=== PATIENT | male | born 1975 ===

== ENCOUNTER 2024-09-15 20:41 | Emergency (ER) | payer OTHER, SELFPAY ==
[2024-09-15 21:13] VITALS: BP 134/93; PULSE 83; RESP 18; TEMP 36.6; O2SAT 98; BMI 30.3
[2024-09-15 21:44] LABS: IDNOW Serial# 55D5AD1C; Strep A Nucleic Acid Negative (Negative)
[2024-09-15 22:13] LABS: Influenza A PCR NEGATIVE (Negative); Influenza B PCR NEGATIVE (Negative); Resp Syncy Virus RNA Qual PCR NEGATIVE (Negative); SARS COV2 PCR INHOUSE NEGATIVE (Negative)
--- NOTE | 2024-09-15 22:36 | ED_ITS ---
HPI - General Adult General Chief complaint: Dental/Oral Stated complaint: Dental Pain Time Seen by Provider: 09/15/24 22:28 Source: patient Limitations: no limitations History of Present Illness ED Provider: Ileana Grimm PA-C HPI narrative: 48-year-old male presents with left upper molar pain x2 days. Pain is radiating to the left ear and throat. Patient states he has had a fever of 101 at home. Related Data Previous Rx's ?Medication ?Instructions ?Recorded ketorolac 10 mg tablet 10 mg PO Q6H PRN pain #20 tabs 09/15/24 methocarbamol 750 mg tablet 1,500 mg (2 x 750 mg) PO Q8H PRN 09/15/24 pain, moderate #20 tabs penicillin V potassium 500 mg 500 mg PO QID #27 tabs 09/15/24 tablet Allergies Allergy/AdvReac Type Severity Reaction Status Date / Time No Known Allergies Allergy Verified 09/15/24 21:16 Review of Systems Review of Systems: Yes all other systems are reviewed and are negative Constitutional: Constitutional: Reports fever(s) ENT: Reports dental pain, Reports otalgia and Reports sore throat Cardiovascular: Cardiovascular: Denies chest pain and Denies dyspnea Respiratory: Respiratory: Denies cough and Denies dyspnea Gastrointestinal: Gastrointestinal: Denies abdominal pain, Denies nausea and Denies vomiting PMF Past Medical History Attestation statement: The following information was validated with the patient. Social History Social History Advance Directives: No Advance Directives Information Provided: No Do you have a plan to hurt others: No Plan Physical Exam ED Vital Signs: Vital Signs - 24 hr 09/15/24 21:13 09/15/24 22:37 Temperature 97.9 F 97.7 F Pulse Rate 83 79 Respiratory Rate 18 18 Blood Pressure 134/93 H 125/81 Pulse Oximetry 98 98 Oxygen Delivery Method Room Air Room Air BMI result Body Mass Index 30.3 Const Other: Alert Orientation/consciousness: patient oriented x3 HENMT Other: Overall grossly normal dentition, he does have his wisdom teeth, on the affected side he is having pain over the entire roll of upper dentition, there was no obvious erythema, swelling or purulence from any tooth, no trismus no drooling, oropharynx is pink, no exudate, uvula midline no sublingual fluctuance, Resp Effort & Inspection: normal respiratory effort Cardio Other: normal peripheral perfusion Skin Other: warm dry no rash Neuro General: patient oriented x3, gait normal, no focal motor deficits and CN's II- XI intact bilaterally Psych Other: cooperative Medications Administered Discontinued Medications Generic Name Dose Route Start Last Admin Trade Name Neo PRN Reason Stop Dose Admin Ketorolac Tromethamine 15 mg 09/15/24 23:11 09/15/24 23:24 Ketorolac Tromethamine 15 Mg/Ml Vial IM 09/15/24 23:12 15 mg ONCE ONE Administration Methocarbamol 1,500 mg 09/15/24 23:11 09/15/24 23:23 Methocarbamol 750 Mg Tablet PO 09/15/24 23:12 1,500 mg ONCE ONE Administration Penicillin V Potassium 500 mg 09/15/24 23:11 09/15/24 23:23 Penicillin V Potassium 250 Mg Tablet PO 09/15/24 23:12 500 mg ONCE ONE Administration Medical Decision Making Medical Decision Making MDM Narrative: 48-year-old male presents with left upper molar pain x2 days. Pain is radiating to the left ear and throat. Patient states he has had a fever of 101 at home. Problem: Needs a dentist History: Per patient I have considered the following differential diagnoses: Needs wisdom teeth out, dental infection, strep pharyngitis, RPA, [employer] ADMINISTRATOR Plan: Viral panel and strep screen were ordered from triage, he does not have strep throat. I think his ear and throat pain and are referred pain from his dental pain. I do not see anything obvious on exam in the way of an infection, he does have his wisdom teeth, perhaps it is applying pressure on the other teeth. He knows he needs to see a dentist. We will start on penicillin, send with a muscle relaxant and an anti-inflammatory. I have independently reviewed the following tests: Viral panel negative Strep screen negative Lab Data Labs: Lab Results 09/15/24 Range/Units 21:31 Influenza Type A (PCR) NEGATIVE (Negative) Influenza Type B (PCR) NEGATIVE (Negative) RSV RNA Qual (PCR) NEGATIVE (Negative) SARS-CoV-2 RNA (RT-PCR) NEGATIVE (Negative) S. pyogenes GrpA MIRNA Negative (Negative) Discharge Plan Discharge Clinical Impression: Toothache Patient Disposition: Home, Self-Care Instructions: Toothache (ED) Additional Instructions: We are covering you for potential early dental infection. Take the penicillin as directed. You need to follow up with a dentist. The viral panel and the strep throat screen were negative. I believe your ear pain and throat pain are referred pain from your likely dental infection. You need to be seen TE[facility] Prescriptions: New penicillin V potassium 500 mg tablet 500 mg PO QID Qty: 27 0RF methocarbamol 750 mg tablet 1,500 mg PO Q8H PRN (Reason: pain, moderate) Qty: 20 0RF ketorolac 10 mg tablet 10 mg PO Q6H PRN (Reason: pain) Qty: 20 0RF Rx Instructions: maximum total duration of 5 days from all oral, intranasal, or parenteral for mulations. Patient an intramuscular dose of Toradol here in the emergency department. Print Language: [place]
[2024-09-15 22:37] VITALS: BP 125/81; PULSE 79; RESP 18; TEMP 36.5; O2SAT 98
[2024-09-15] MEDS: Penicillin V Potassium 250 MG TABLET 500 MG PO (23:23)
[2024-09-15] MEDS: methocarbamoL 750 MG TABLET 1500 MG PO (23:23)
[2024-09-15] MEDS: Ketorolac Tromethamine 15 MG/ML VIAL IM (23:24)
[2024-09-15 23:58] VITALS: BP 131/86; PULSE 70; RESP 18; TEMP 36.4; O2SAT 99
== END 2024-09-16 | disposition home or self-care (01) ==
PROVIDERS: Emergency Provider Emergency Medicine; PCP Family Medicine
DX: K08.89 Other specified disorders of teeth and supporting structures (principal); R50.9 Fever, unspecified; Z03.818 Encounter for observation for suspected exposure to other biological agents ruled out
CPT/HCPCS: 0241U; 87651; 96372; 99284; J1885